=== PATIENT | female | born 1970 | race Caucasian/White ===

== ENCOUNTER 2016-05-04 06:57 | Day surgery (SDC) | payer OTHER ==
[~2016-05-04 06:57] MED LIST: BETAMETHASONE D1 CR2 EX; BIAXIN500 MG PO; BUSPAR DIVIDOSE15 MG PO; DARVOCET-N6 EACH/PAK OR; FLONASE 50 MCG16 GM; FLUTICASON0.05 MG/AC NS; KEFLEX 500MG.500 MG PO; MEDROL 4MG. DOSE4 MG PO; MONTELUKAST SOD10 MG PO; NEXIUM40 MG PO; OMEPRAZOLE40 MG PO; PROAIR HFA0.09 MG/AC IH
--- NOTE | 2016-05-04 07:56 | Operative Note ---
Endoscopy Report Date: 05/04/16 Preoperative diagnosis: GERD Epigastric Pain Procedure Type of procedure: Esophagogastroduodenoscopy with Biopsies Indications: 46-year-old white female referred from Dr. Ken for upper endoscopy. Patient has a long-standing history of gastroesophageal reflux-type symptoms. She's been on omeprazole for quite some time. She had prior H. pylori positivity by serology and was treated several years ago. She hasn't had upper endoscopy for approximately 20 years. She previously been diagnosed with ulcers. She's recently had increasing abdominal gassiness and bloating. On 04/08/16 she had presented with epigastric and atypical chest pain to the emergency department and was admitted overnight. Her symptoms improved with H2 blockers, Reglan, and proton pump inhibitors. With Nexium and dietary measures her symptoms have improved somewhat. She has had occasional waterbrash and coughing. Consent was obtained and patient was taken to same-day surgery endoscopy procedure room. she was positioned in lateral decubitus position. Adequate intravenous sedation was achieved which, of note, require titration of 13 mg Versed and 200 g fentanyl for the duration of the procedure. Olympus endoscope was inserted via the oropharynx. Majority of the esophagus was normal. In the distal esophagus there was possible Reyes's esophagus. Stomach was cannulated and insufflated. Retroflexion revealed a moderate sliding hiatal hernia. Gastric antral mucosal biopsy was obtained for CLOtest for H. pylori. Pylorus was easily traversed. Duodenum appeared unremarkable. A couple of duodenal biopsies were obtained. Gastric biopsy was obtained. Evidence of very mild nonerosive diffuse gastritis. Several biopsies were obtained of the gastroesophageal junction to rule out Reyes's. Endoscope was withdrawn. Findings: 1. Moderate sliding hiatal hernia 2. Possible Reyes's 3. Diffuse mild nonerosive gastritis Recommendations: Follow-up on histopathology. Follow up on CLOtest and treat H. pylori if positive. at [id number]
[2016-05-04 14:04] VITALS: BP 131/66
== END 2016-05-04 08:50 | disposition home or self-care (01) ==
LOC: SDC 06:57
PROVIDERS: Surgery
PROC: 0DB68ZX Excision of Stomach, Via Natural or Artificial Opening Endoscopic, Diagnostic (ICD-10-PCS; 2016-05-04)
PROC: 0DB48ZX Excision of Esophagogastric Junction, Via Natural or Artificial Opening Endoscopic, Diagnostic (ICD-10-PCS; 2016-05-04)
PROC: 0DB98ZX Excision of Duodenum, Via Natural or Artificial Opening Endoscopic, Diagnostic (ICD-10-PCS; principal; 2016-05-04 07:30)
DX: K29.70 Gastritis, unspecified, without bleeding (principal); K44.9 Diaphragmatic hernia without obstruction or gangrene; K21.9 Gastro-esophageal reflux disease without esophagitis; R10.13 Epigastric pain

== ENCOUNTER → 2017-03-04 | Outpatient (CLI) | payer OTHER ==
--- NOTE | 2017-03-07 09:49 | RADIOLOGY REPORT PS360 ---
DIG MAMM-SCREEN RAFA W/CAD CAD Screening COMPARISON: Digital mammograms 08/05/2014 and 10/28/2015 INDICATION: There is a history of breast cancer patient maternal grandmother and maternal aunt TECHNIQUE: Standard CC and MLO images were obtained. R2 CAD reviewed. FINDINGS: The breasts are composed primarily of fat with minimal scattered fiber glandular densities throughout each breast. There are couple benign-appearing calcifications in each breast. There is no suspicious lesion and there are no suspicious microcalcifications. IMPRESSION: Stable exam with no suspicious lesion seen recommend yearly follow-up BI-RADS CATEGORY: 2_Benign RECOMMENDED FOLLOWUP: 12M 12 MONTH FOLLOW-UP (A letter has been sent to the patient regarding results of the study.)
== END ==
LOC: RAD 08:10
DX: N60.12 Diffuse cystic mastopathy of left breast (principal); N60.11 Diffuse cystic mastopathy of right breast; Z12.31 Encounter for screening mammogram for malignant neoplasm of breast
CPT/HCPCS: G0202